=== PATIENT | male | born 1990 | race Caucasian/White ===

== ENCOUNTER → 2019-07-24 | Outpatient (CLI) | payer BC ==
[2019-07-24 15:57] LABS: ABSOLUTE BASOPHILS # (AUTO) 0.1 10^3/uL (0.0-0.2); ABSOLUTE EOSINOPHILS # (AUTO) 0.2 10^3/uL (0.0-0.6); ABSOLUTE LYMPHOCYTES (AUTO) 2.2 10^3/uL (0.5-4.7); ABSOLUTE MONOCYTES (AUTO) 0.9 10^3/uL (0.1-1.4); ABSOLUTE NEUT (AUTO) 3.8 10^3/uL (1.7-8.2); EOSINOPHILS % (AUTO) 3.2 % (0-6); HEMATOCRIT 43.3 % (37.9-51.0); HEMOGLOBIN 15.3 g/dL (13.5-17.0); LYMPHOCYTES % (AUTO) 30.3 % (13-45); MEAN CORPUSCULAR HGB CONC 35.3 g/dL (32.0-36.0); MEAN CORPUSCULAR VOLUME 85 fl (80-97); MONOCYTES % (AUTO) 12.9 % (3-13); PLATELET COUNT 228 10^3/uL (150-450); RED CELL DISTRIBUTION WIDTH 12.6 % (11.5-14.0); SEGMENTED NEUTROPHILS % (AUTO) 52.6 % (42-78); TOTAL CELLS COUNTED % (AUTO) 100 %; WHITE BLOOD COUNT 7.2 10^3/uL (4.0-10.5)
[2019-07-24 16:17] LABS: ALKALINE PHOSPHATASE 94 U/L (38-126); ANION GAP 14 (5-19); ASPARTATE AMINO TRANSFERASE 26 U/L (17-59); BILIRUBIN,DIRECT 0.2 mg/dL (0.0-0.4); BILIRUBIN,TOTAL 0.6 mg/dL (0.2-1.3); BLOOD UREA NITROGEN 14 mg/dL (7-20); CALCIUM 10.7 mg/dL (8.4-10.2); CARBON DIOXIDE 27 mmol/L (22-30); CHLORIDE 100 mmol/L (98-107); GLUCOSE 89 mg/dL (75-110); POTASSIUM 4.3 mmol/L (3.6-5.0); TOTAL PROTEIN 8.5 g/dL (6.3-8.2)
[2019-07-26 09:37] LABS: HEPATITS B SURFACE ANTIGEN Negative (Negative); MUMPS IGG AB <9.0 AU/mL (Immune >10); RUBEOLA IGG AB >300.0 AU/mL (Immune >16)
== END ==
LOC: OD 15:11
PROVIDERS: ATTEND Internal Medicine
DX: Z00.00 Encounter for general adult medical examination without abnormal findings (principal)
CPT/HCPCS: 36415; 80053; 84443; 85025; 86317; 86735; 86762; 86765; 87340

== ENCOUNTER → 2019-07-30 | Outpatient (CLI) | payer BC ==
[2019-07-30 12:37] LABS: CHOLESTEROL 229.97 mg/dL (0-200); TRIGLYCERIDES 98 mg/dL (<150)
[2019-07-30 12:48] LABS: DIRECT LDL 174 mg/dL (<100)
== END ==
LOC: OD 11:36
PROVIDERS: ATTEND Internal Medicine
DX: Z00.00 Encounter for general adult medical examination without abnormal findings (principal)
CPT/HCPCS: 36415; 80061

== ENCOUNTER → 2019-08-14 | Outpatient (CLI) | payer BC ==
--- NOTE | 2019-08-14 13:09 | RADIOLOGY REPORT (SQ) ---
EXAM DESCRIPTION: CHEST PA/LATERAL COMPLETED DATE/TIME: 08/14/2019 11:06 am REASON FOR STUDY: ENCOUNTER FOR SCREENING FOR RESPIRATORY TUBERCULOSIS COMPARISON: None. EXAM PARAMETERS: NUMBER OF VIEWS: two views TECHNIQUE: Digital Frontal and Lateral radiographic views of the chest acquired. RADIATION DOSE: NA LIMITATIONS: none FINDINGS: LUNGS AND PLEURA: No opacities, masses or pneumothorax. No pleural effusion. MEDIASTINUM AND HILAR STRUCTURES: No masses or contour abnormalities. HEART AND VASCULAR STRUCTURES: Heart normal size. No evidence for failure. BONES: No acute findings. HARDWARE: None in the chest. OTHER: No other significant finding. IMPRESSION: NO SIGNIFICANT RADIOGRAPHIC FINDING IN THE CHEST. TECHNICAL DOCUMENTATION: JOB ID: [id number] [employer]- All Rights Reserved Reading location - IP/workstation name: [email or web address]
== END ==
LOC: OD 10:57
PROVIDERS: ATTEND Internal Medicine
DX: Z11.1 Encounter for screening for respiratory tuberculosis (principal)
CPT/HCPCS: 71046